=== PATIENT | female | born 1985 | race Caucasian/White ===

== ENCOUNTER 2020-09-19 08:42 | Outpatient (CLI) | payer BC ==
[2020-09-19 10:29] LABS: INR 0.97 (0.87-1.13)
[2020-09-19 10:30] LABS: Partial Thromboplastin Time 33.7 Sec. (24.2-36.6)
[2020-09-19 10:44] LABS: Alanine Aminotransferase 26 units/L (7-56); BUN/Creatinine Ratio 7; Bilirubin,Direct 0.2 mg/dL (0-0.2); Blood Urea Nitrogen 6 mg/dL (7-17); Calcium 9.4 mg/dL (8.4-10.2); Chol/HDL Ratio 3.02 %; HDL Cholesterol 38 mg/dL (40-59); Hemolysis Index 1; LDL Cholesterol,Direct 59 mg/dL (50-130)
[2020-09-19 10:48] LABS: Hepatitis B Surface Antigen Non-Reactive (Negative); Hepatitis C Virus Antibody Non-Reactive (NonReactive)
--- NOTE | 2020-09-19 11:32 | Ultrasound Report ---
ULTRASOUND ABDOMEN, COMPLETE INDICATION: ATTENTION TO LIVER AND GALLBLADDER. COMPARISON: None available. FINDINGS: Pancreas: Normal. Abdominal Aorta: Normal. IVC: Normal. Liver: Mild increased echogenicity. Gallbladder: Normal. Bile ducts: Normal. Common Bile Duct measures 2.4 mm. Right Kidney: Mild fullness right renal collecting system. Left Kidney: Normal. Spleen: Normal. Free fluid: None. Additional Findings: None. IMPRESSION: 1. Mild increased echogenicity mild fatty infiltration is suspected. 2. Mild fullness right renal collecting system. This could be more completely evaluated with noncontr ast CT as clinically indicated. Signer Name: Maykel Jacobo MD Signed: 09/19/2020 11:28 AM Workstation Name: [id number]
== END 2020-09-19 08:43 | disposition home or self-care (01) ==
LOC: US 08:42
PROVIDERS: ATTEND Internal Medicine
DX: Z13.220 Encounter for screening for lipoid disorders (principal); R94.5 Abnormal results of liver function studies; Q20.0 Common arterial trunk
CPT/HCPCS: 36415; 76700; 80048; 80061; 80074; 80076; 85610; 85730

== ENCOUNTER 2021-10-23 08:09 | Outpatient (CLI) | payer BC ==
[2021-10-23 08:46] LABS: Basophils % (Auto) 0.8 % (0.0-1.8); Eosinophils # (Auto) 0.2 K/mm3 (0.0-0.4); Eosinophils % (Auto) 3.6 % (0.0-4.3); Lymphocytes # (Auto) 2.1 K/mm3 (1.2-5.4); Lymphocytes % (Auto) 34.8 % (13.4-35.0); Mean Corpuscular HGB Conc 36 % (30-34); Mean Corpuscular Volume 91 fl (79-97); Monocytes # (Auto) 0.4 K/mm3 (0.0-0.8); Monocytes % (Auto) 6.4 % (0.0-7.3); Platelet Count 262 K/mm3 (140-440); Red Blood Count 3.94 M/mm3 (3.65-5.03); Red Cell Distribution Width 13.2 % (13.2-15.2)
[2021-10-23 08:47] LABS: Hemoglobin 13.1 gm/dl (10.1-14.3)
[2021-10-23 09:07] LABS: Alanine Aminotransferase 13 units/L (7-56); Albumin 4.2 g/dL (3.9-5); Blood Urea Nitrogen 18 mg/dL (7-17); Calcium 9.3 mg/dL (8.4-10.2); Chol/HDL Ratio 4.66 %; HDL Cholesterol 66 mg/dL (40-59); Hemolysis Index 4; LDL Cholesterol,Direct 233 mg/dL (50-130)
[2021-10-23 09:12] LABS: BUN/Creatinine Ratio 26
== END 2021-10-23 08:10 | disposition home or self-care (01) ==
LOC: LAB 08:09
PROVIDERS: ATTEND Internal Medicine
DX: Z00.00 Encounter for general adult medical examination without abnormal findings (principal); R94.5 Abnormal results of liver function studies; E78.5 Hyperlipidemia, unspecified; R53.83 Other fatigue; E55.9 Vitamin D deficiency, unspecified
CPT/HCPCS: 36415; 80053; 80061; 82306; 84443; 85025

== ENCOUNTER 2022-01-29 08:07 | Outpatient (CLI) | payer BC ==
[2022-01-29 08:57] LABS: Alanine Aminotransferase 18 units/L (7-56); Albumin 4.4 g/dL (3.9-5); Chol/HDL Ratio 3.45 %; HDL Cholesterol 75 mg/dL (40-59); LDL Cholesterol,Direct 186 mg/dL (50-130)
[2022-01-29 09:17] LABS: Bilirubin,Direct < 0.2 mg/dL (0-0.2)
== END 2022-01-29 08:08 | disposition home or self-care (01) ==
LOC: LAB 08:07
PROVIDERS: ATTEND Internal Medicine
DX: E78.5 Hyperlipidemia, unspecified (principal); R94.5 Abnormal results of liver function studies
CPT/HCPCS: 36415; 80061; 80076